=== PATIENT | female | born 1990 | race Caucasian/White ===

== ENCOUNTER 2022-04-07 10:01 | Outpatient (CLI) | payer BC, SELFPAY ==
[2022-04-07 13:51] LABS: Albumin* 3.5 g/dL (3.3-5.0); Chloride* 104 mmol/L (96-114); Sodium* 132 mmol/L (135-149)
[2022-04-07 13:52] LABS: Potassium* 4.1 mmol/L (3.6-5.1)
[2022-04-07 13:54] LABS: Alanine Aminotransferase* 26 U/L (4-35); Alkaline Phosphatase* 77 U/L (40-150); Aspartate Amino Transferase* 42 U/L (12-35); Bilirubin Total* 0.5 mg/dL (0.1-1.5); Blood Urea Nitrogen* 6 mg/dL (5-24); Calcium* 8.5 mg/dL (8.4-10.6); Carbon Dioxide* 21 mmol/L (20-32); Creatinine* 0.5 mg/dL (0.5-1.5); Estimated Glomerular Filt Rate 129 ml/min; Glucose* 90 mg/dL (60-115); Total Protein* 6.5 g/dL (6.0-8.3)
== END 2022-04-07 10:02 | disposition home or self-care (01) ==
LOC: LKVREF 10:02
PROVIDERS: PCP Family Medicine; Visit Provider Physician Assistant
DX: R19.7 Diarrhea, unspecified (principal)
CPT/HCPCS: 80053

== ENCOUNTER 2022-04-08 13:42 | Outpatient (CLI) | payer BC, SELFPAY ==
[2022-04-19 21:38] LABS: Cryptosporidium by PCR Detected; Cyclospora cayetanensis by PCR Not Detected; Dientamoeba fragilis by PCR Not Detected; Entamoeba histolytica by PCR Not Detected; Giardia by PCR Not Detected
== END 2022-04-08 13:43 | disposition home or self-care (01) ==
PROVIDERS: PCP Family Medicine; Visit Provider Family Medicine
DX: Z34.82 Encounter for supervision of other normal pregnancy, second trimester (principal); R19.7 Diarrhea, unspecified
CPT/HCPCS: 76816; 87045; 87046; 87427; 87505

== ENCOUNTER 2022-05-03 14:23 | Outpatient (CLI) | payer BC, SELFPAY ==
[2022-05-05 09:59] LABS: Rapid Plasma Reagin (RPR) Non Reactive (Non Reactive)
== END 2022-05-03 14:24 | disposition home or self-care (01) ==
PROVIDERS: PCP Family Medicine; Visit Provider Obstetrics & Gynecology
DX: Z34.93 Encounter for supervision of normal pregnancy, unspecified, third trimester (principal); Z3A.29 29 weeks gestation of pregnancy
CPT/HCPCS: 86592

== ENCOUNTER 2022-06-21 09:07 | Outpatient (CLI) | payer BC, SELFPAY ==
--- NOTE | 2022-06-21 09:15 | CRLHL7_ITS ---
For Patients: As a result of the Century Cures Act, medical imaging exams and procedure reports are released immediately into your electronic medical record. You may view this report before your referring provider. If you have questions, please contact your health care provider. INDICATION: Third trimester scan, evaluate growth. Planning . COMPARISON: 04.08.22 TECHNIQUE: Real time mac scale imaging of the fetus was performed. FINDINGS: Sonographic imaging demonstrates a single living intrauterine gestation. Fetus demonstrates a cardiac rate ranging between 185 and 195 beats per minute. Fetus has a vertex position. The placenta lies posteriorly. Amniotic fluid volume appears normal and there is a single deepest vertical pocket: 2.9 cm. The estimated weight is 2781gm which lies at the 46th %. On the prior OB ultrasound exam dated 04.08.22 the estimated weight was at the 50th%. BPD 10th percentile. HC 31st percentile. AC 59th percentile. FL 48th percentile. The HC/AC ratio measures 1.01 range (0.93-1.09). IMPRESSION: Sonographic gestational age 35 weeks 5 days and sonographic due date 07/21/2022. Good correlation with dates. Normal interval growth. Estimated weight 46th percentile. Abdominal circumference 59th percentile. The heart rate was upper limits of normal between 185 and 195 beats per minute. Dictated by Elgin Barrera MD @ 06/21/2022 10:52:45 AM (Electronically Signed)
== END 2022-06-21 09:08 | disposition home or self-care (01) ==
LOC: US 09:09
PROVIDERS: PCP Family Medicine; Visit Provider Obstetrics & Gynecology
DX: O34.219 Maternal care for unspecified type scar from previous cesarean delivery (principal); Z3A.35 35 weeks gestation of pregnancy
CPT/HCPCS: 76816; 87081; 87653

== ENCOUNTER 2022-07-05 11:45 | Inpatient (IN) | payer BC, SELFPAY ==
[2022-07-05] VITALS (11 sets, daily range): BP systolic 106–134; BP diastolic 56–74; PULSE 78–106; RESP 16; TEMP 36.9–37.1; O2SAT 99; BMI 29.1
[2022-07-05 12:52] LABS: SARS PCR* Negative SARS-CoV-2 (Negative)
[2022-07-05 13:14] LABS: Basophils Absolute Auto 0.02 K/uL (0.00-0.30); Basophils Percent Auto 0.2 % (0.0-3.0); Eosinophils Absolute Auto 0.05 K/uL (0.00-0.50); Eosinophils Percent Auto 0.5 % (0.0-7.0); Hematocrit 33.3 % (33.0-51.0); Hemoglobin* 11.3 gm/dL (12.0-16.0); Immature Granulocytes Abs Auto 0.02 K/uL (0.00-0.30); Immature Granulocytes Pct Auto 0.2 %; Lymphocytes Absolute Auto 1.95 K/uL (0.90-2.90); Mean Corpuscular HGB Conc 34 gm/dL (32-36); Mean Corpuscular Hemoglobin 30 pg (26-34); Mean Corpuscular Volume 89 fL (80-100); Monocytes Percent Auto 5.3 % (0.0-11.0); Neutrophils Percent Auto 72.8 % (42.0-72.0); Platelet Count* 141 K/uL (140-440); RDW Coefficient of Variation % 12.1 % (11.5-15.5); Red Blood Count 3.73 m/uL (4.00-5.20)
[2022-07-05 13:18] LABS: Slide Review Reflex No
--- NOTE | 2022-07-05 15:23 | W.PM.LDBA ---
Subjective History of Present Illness Time Seen by Provider: 14:00 Date Seen: 07/05/22 Narrative: Dimas being admitted to Labor and Delivery for IOL r/t cholystasis. She is a 32 year old at 38 0/7 weeks gestation. Her full history and physical was dictated by [] on []. Please see this for details. [] OB - H&P: Exam Physical Exam: Vital signs: Temp Pulse Resp BP Pulse Ox 98.4 F 106 H 16 118/74 99 07/05/22 12:04 07/05/22 12:04 07/05/22 12:04 07/05/22 12:04 07/05/22 12:02 Constitutional: Constitutional: no acute distress Routine HEENT Exam: Head: Present normocephalic Eye: Present normal appearance Routine Neck Exam: Neck: Present full ROM Routine Respiratory Exam: Respiratory: Present CTA bilaterally Routine Cardiovascular Exam: Cardiovascular: RRR Routine Exam: External: Present normal external exam Perineum Description: Normal Detailed Labor and Delivery Exam: Patient Gravid: yes Dilation (cm): 1 (Fingertip) Effacement (%): 20 Cervix position: posterior Consistency: soft Tachysystole: No Routine Back/Spine/Pelvis Exam: Back/Spine: full ROM Routine Neurological Exam: Present alert and oriented X3 Routine Psychiatric Exam: Present normal affect and normal thought process
--- NOTE | 2022-07-05 15:29 | P.OBHP_ITS ---
OB - H&P: HPI Labor/Induction History of Present Illness Time Seen by Provider: 14:30 Date Seen: 07/05/22 Chief Complaint: The patient is a 32 year old 5 para 2 at 38 0/7 weeks gestation by LMP, who presents for an IOL r/t cholestasis, pt is a TOLAC. OB Problem List 1. H/o d/t breech and successful Desires TOLAC. Predicted chance of success via calculator: 94.1% Consent given to the patient and reviewed on 05/03/22. Consent signed: signed 36 week growth ultrasound: EFW: 46%, Vertex, SDP: 2.9cm, BPD: 10%, HC: 31%, AC: 59%, FL:48%. 2. Anemia affecting in the 3rd trimester. * 05/03/2022: Hemoglobin 10.5 * Start nigu-tgn-gqxxmpe iron supplement 1 tablet p.o. daily with food * Recheck hemoglobin at 36 weeks: 11.5 3. GBS+, will need ampicillin in labor Chief complaint: Maternity and Cholestasis : 5 Para: 2 Date of last menstrual period: 10/12/21 Estimated date of delivery: 07/19/22 Gestational age based on last menstrual period: 38 Indications for induction: other (Cholestasis) Narrative: History of Present Dating criteria: based on LMP care: good care Ultrasounds: normal 1st trimester US and normal mid trimester US complications: other (Cholestasis) Labs Blood type: O (+) positive Rubella: immune RPR/VDLR: nonreactive GBS status: positive HBsAG: negative Review of Systems Status of ROS: Reports: 10 or more systems reviewed and unremarkable except as noted in History and below Meds Home Medications and Allergies Home Medications Medication Instructions Recorded Confirmed Type prenat.vits,tayla,xcz-iefe-jxfki 1 tab PO QDAY 03/06/22 07/05/22 History L.acidoph, paracasei,B. lactis 10 1 cell PO DAILY 05/03/22 07/05/22 History billion cell capsule (Digestive Advantage Advanced Probiotic) Allergies Allergy/AdvReac Type Severity Reaction Status Date / Time No Known Allergies Allergy Unverified 07/05/22 08:28 OB - H&P: Exam Physical Exam: Vital signs: Temp Pulse Resp BP Pulse Ox 98.4 F 106 H 16 118/74 99 07/05/22 12:04 07/05/22 12:04 07/05/22 12:04 07/05/22 12:04 07/05/22 12:02 Constitutional: Constitutional: no acute distress Routine HEENT Exam: Head: Present normocephalic Eye: Present normal appearance Routine Neck Exam: Neck: Present full ROM Routine Respiratory Exam: Respiratory: Present CTA bilaterally Routine Cardiovascular Exam: Cardiovascular: RRR Routine Exam: External: Present normal external exam Perineum Description: Normal Detailed Labor and Delivery Exam: Patient Gravid: yes Dilation (cm): 1 (fingertip) Effacement (%): 10 Cervix position: posterior Consistency: soft Tachysystole: No Contraction intensity: Mild (irregular) Fetus (Single): Station: -4 Heart Rate Baseline: 130 Monitor Accelerations: Present Monitor Decelerations: None Senior Living Variability: Moderate (6-25) Routine Extremities Exam: Extremities: Present full ROM; Absent pedal edema Routine Back/Spine/Pelvis Exam: Back/Spine: full ROM Routine Skin Exam: Present intact, dry and warm Routine Neurological Exam: Present alert and oriented X3 Detailed Neurological Exam: Coma Scale: Eye Opening: Spontaneous (4) Verbal Response: Orientated (5) Routine Psychiatric Exam: Present normal affect, normal thought process, cooperative, good insight and good judgment OB - Results Labs Labs: Short CBC 07/05/22 Range/Units 12:55 WBC 9.30 (4.50-11.00) K/uL Hgb 11.3 L (12.0-16.0) gm/dL Hct 33.3 (33.0-51.0) % Plt Count 141 (140-440) K/uL OB - Problem Based A/P Additional Plan (1) Encounter for supervision of other normal , third trimester: Status: Acute (2) Cholestasis during in third trimester: Status: Acute (3) Anemia affecting in third trimester: Status: Acute (4) Patient desires vaginal after section (): Status: Acute Plan ASSESSMENT:? 32yo at 38 0/7 weeks gestation? complicated by:?Cholestasis Labor type: Induced labor? Category 1 FHR pattern.?? Labor complicated by: GBS+? PLAN:? 1. Routine intrapartum cares as ordered. 2. Monitoring per policy, continuous d/t TOLAC and Cholestasis? 3. Planning unmedicated . Candidate for analgesia of choice if desired.?? 4. Patient encouraged to reposition and ambulate to promote physiologic labor and .? 6. Anticipate progress to active labor and 7. Dr. Noonan aware of pt's arrival ? Delivery/Labor/Induction Plan Plan: induction Induction method: Intracervical balloon catheter (Per Pitocin Protocol)
[2022-07-05] MEDS: LACTATED RINGERS 1000 ML 1,000 ML 124 ML IV (17:54)
[2022-07-05] MEDS: OXYTOCIN 30 unit/500 ML in NS 30 UNIT/500 ML BAG IVPB (17:56)
[2022-07-05] MEDS: AMPICILLIN 2 GM in 0.9 % SODIUM CHLORIDE Mini-bag 100 ML IVPB (19:55)
--- NOTE | 2022-07-05 21:51 | P.OBPN_ITS ---
Subjective Time Seen by Provider: 21:51 Date Seen: 07/05/22 Narrative: Intrapartum Progress Note? Labor and Delivery? ? Subjective: Denice is coping well with labor pain/contractions. She is currently being supported by her Jeffrey. Cook catheter fell out on it's own, pt reports she is feeling contractions more and needs to breath through them more now. SVE 3cm/30%/-4 - cervix is very soft and stretchy. Discussed continuing pitocin and balancing ambulation and position changes with rest tonight. Questions answered to her satisfaction. Denies concerns. She would like to continue with position changes and breathing for comfort and pain management.?? Objective Vital Signs: Last Vital Signs Temp 98.6 F 07/05/22 19:58 Pulse 84 07/05/22 19:59 Resp 16 07/05/22 19:58 BP 115/70 07/05/22 19:59 Pulse Ox 99 07/05/22 12:02 Pelvic Exam Dilation (cm): 3 Effacement (%): 30 Station: -4 Contractions Monitor mode: External Contraction pattern: Irregular Contraction intensity: Mild (irregular) Pitocin Rate (mU/min): 4 Assessment Station: -4 Heart Rate Baseline: 130 Professor Of Spanish Variability: Moderate (6-25) Monitor Accelerations: Present Monitor Decelerations: None Plan Plan: ASSESSMENT:? 32yo at 38 0/7 weeks gestation? complicated by:?Cholestasis Labor type: Induced labor? Category 1 FHR pattern.?? Labor complicated by: GBS+? PLAN:? 1. Routine intrapartum cares as ordered. 2. Pitocin per protocol 3. Monitoring per policy, continuous d/t TOLAC and Cholestasis? 4. Planning unmedicated . Candidate for analgesia of choice if desired.?? 5. Patient encouraged to reposition and ambulate to promote physiologic labor and .? 6. Anticipate progress to active labor and 7. Dr. Noonan aware of pt's arrival
[2022-07-06] VITALS (18 sets, daily range): BP systolic 89–123; BP diastolic 51–69; PULSE 74–100; RESP 14–16; TEMP 36.9–37.1; O2SAT 97
--- NOTE | 2022-07-06 01:35 | PM.OBPNL ---
Subjective Time Seen by Provider: 01:35 Date Seen: 07/06/22 Narrative: Intrapartum Progress Note? Labor and Delivery? ? Denice is coping well with labor pain/contractions. She is currently being supported by her .. Understands the current plan of care. Questions answered to her satisfaction. Reports concerns regarding: wanting to sleep if it will not slow down labor, but feels she needs some medication to help her fall asleep. Discussed options for unisom or Vistaril since she is not experiencing much pain right now and is not feeling ready for pain medication yet. She would like to continue with breathing and relaxation for comfort and pain management. ?? Objective Vital Signs: Last Vital Signs Temp 98.7 F 07/05/22 23:48 Pulse 81 07/05/22 23:48 Resp 16 07/05/22 23:48 BP 134/69 07/05/22 23:48 Pulse Ox 99 07/05/22 12:02 Pelvic Exam Dilation (cm): 4 Effacement (%): 50 Station: -3 Contractions Monitor mode: External Contraction pattern: Irregular Contraction intensity: Mild (irregular) Pitocin Rate (mU/min): 4 Assessment Station: -4 Status: Category l Heart Rate Baseline: 130 Laboratory Phlebotomist Variability: Moderate (6-25) Monitor Accelerations: Present Monitor Decelerations: None Plan Plan: ASSESSMENT:? 32yo at 38 2/7 weeks gestation? complicated by:?Cholestasis Labor type: Induced labor? Category 1 FHR pattern.?? Labor complicated by: GBS+? PLAN:? 1. Routine intrapartum cares as ordered. 2. Pitocin per protocol 3. Monitoring per policy, continuous d/t TOLAC and Cholestasis? 4. Planning unmedicated . Candidate for analgesia of choice if desired.?? 5. Patient encouraged to reposition and ambulate to promote physiologic labor and .? 6. Anticipate progress to active labor and 7. Dr. Noonan aware of pt's arrival
[2022-07-06] MEDS: LACTATED RINGERS 1000 ML 1,000 ML 109 ML IV (02:05)
[2022-07-06] MEDS: AMPICILLIN 1 GM in 0.9 % SODIUM CHLORIDE Mini-bag 100 ML IVPB ×2 (02:55→07:10)
[2022-07-06] MEDS: LIDOCAINE 1% MDV 20 ML INJECTION (09:00)
--- NOTE | 2022-07-06 09:21 | PM.OBPRCVD ---
Procedure Procedure Done: Global Procedure Details: The patient is a 32 year-old G 5 P 2-0-2-2 woman admitted on 07/05/2022 at 38 Weeks, 0 Days gestation for induction of labor for indication of suspected cholestasis of .? Diagnosis was based on symptoms of pruritus of palms and soles. Cervical exam on admission was [] cm/[] % effaced/[] station with membranes intact in vertex presentation.? heart rate demonstrated baseline [] bpm with [moderate] variability, [+] accelerations, [-] decelerations; a category [1] tracing.? She had Cook catheter placed for cervical ripening. She had ampicillin for GBS prophylaxis. She had Pitocin for augmentation. AROM occurred at 8:00 a.m. with clear fluid. ? Labor Analgesia:? None ? Pitocin:? Yes ? Labor onset:? Morning of 07/06/2022 ? Complete:? 8:35 a.m. ? Pushing:? 8:40 a.m. ? heart tones during second stage were notable for deep decelerations following 2 contractions. ? At 8:51 a.m. a viable male delivered in vertex PUMA presentation over small first-degree perineal laceration via spontaneous vaginal delivery.? Infant was placed on maternal abdomen.? Cord was clamped and cut after a 60 second delay.? Nose and mouth were bulb suctioned.? Infant weight pending.? 8 at 1 minute and 9 at 5 minutes.? Shoulder dystocia: No.? Nuchal cord: No. ? Placenta delivered spontaneously and complete at 8:59 a.m. with a 3 vessel cord. ? Mother and were stable after delivery. ? Lacerations:? Periurethral and first-degree perineal, each repaired with interrupted sutures of 3-0 Vicryl after infiltration with a total of 10 mL of 1% lidocaine. ? Blood loss: 300 mL. Blood loss measurement type: EBL ? Sponge and needles counts are correct.
[2022-07-06] MEDS: LACTATED RINGERS 1000 ML 1,000 ML 999 ML IV (09:40)
[2022-07-07 01:00] VITALS: BP 102/67; PULSE 78; RESP 14; TEMP 36.8; O2SAT 96
[2022-07-07 05:24] VITALS: BP 97/63; PULSE 79; RESP 14; TEMP 36.7; O2SAT 97
[2022-07-07 07:20] LABS: Hemoglobin* 9.5 gm/dL (12.0-16.0)
[2022-07-07 09:38] VITALS: BP 101/55; PULSE 84; RESP 20; TEMP 36.6; O2SAT 97
--- NOTE | 2022-07-07 10:27 | P.DS_ITS ---
DS: Providers Provider Date Seen: 07/07/22 Date of admission: 07/05/22 11:45 Primary care physician: Ash Kitchen MD Admitting Clinician: Jodi Laughlin CNM Attending Physician on discharge: Seema Brink MD Date of Discharge: 07/07/22 DS: Diagnosis Discharge Diagnosis (1) Anemia associated with acute blood loss: Status: Acute (2) Vaginal after : Status: Acute (3) Cholestasis during in third trimester: Status: Resolved Exam Narrative: Exam Narrative: General: No acute distress Psych: Alert and oriented x 3, full affect HEENT: Normocephalic, atraumatic Heart: Regular rate and rhythm, no murmur or gallop Lungs: Clear to auscultation bilaterally Abdomen: Soft, nontender, fundus well below umbilicus Lower extremities: No edema or erythema Const: Vital Signs, click to edit/add: Vital Signs - 24 hr 07/06/22 10:34 07/06/22 10:49 07/06/22 11:04 Temperature Pulse Rate 75 89 83 Pulse Rate [Pulse Oximeter] Respiratory Rate Blood Pressure 89/54 L 93/58 L 92/63 Blood Pressure [Le ft Arm] Pulse Oximetry Oxygen Delivery Me thod 07/06/22 11:19 07/06/22 11:21 07/06/22 16:55 Temperature 98.8 F Pulse Rate 90 81 Pulse Rate [Pulse Oximeter] Respiratory Rate 16 Blood Pressure 92/64 98/63 89/53 L Blood Pressure [Le ft Arm] Pulse Oximetry Oxygen Delivery Me thod 07/06/22 17:50 07/06/22 20:35 07/07/22 01:00 Temperature 98.4 F 98.2 F Pulse Rate Pulse Rate [Pulse Oximeter] 100 78 Respiratory Rate 16 16 14 Blood Pressure Blood Pressure [Le ft Arm] 103/67 99/65 102/67 Pulse Oximetry 97 96 Oxygen Delivery Me thod Room Air Room Air 07/07/22 05:24 07/07/22 09:38 Temperature 98.0 F 97.9 F Pulse Rate Pulse Rate [Pulse Oximeter] 79 84 Respiratory Rate 14 20 Blood Pressure Blood Pressure [Le ft Arm] 97/63 101/55 L Pulse Oximetry 97 97 Oxygen Delivery Me thod Room Air Room Air OB - DS: Summary Hospital Course Hospital Course: Denice is a 32 year old 5 now para 3 who is s/p normal spontaneous vaginal delivery / successful on 07/06/2022 at 38 0/7 weeks gestation in the setting of suspected cholestasis of . She had generalized pruritus including her palms and soles. She had normal transaminases, and bile acids are still pending. She had an uncomplicated normal spontaneous vaginal delivery / successful on 07/06/2022. She delivered a healthy male . She had first-degree perineal laceration and periurethral laceration. She is successfully . Her course has been smooth. Today, on day 1, she has no complaints. She is feeling well. She is tolerating regular diet. She is ambulating and urinating without difficulty. She denies any heavy bleeding. She has no complaints of pain. Peripartum Data delivery method: Episiotomy description: None Gender: Male Time Spent with Patient Time attestation: Total time spent providing and/or coordinating discharge services: Discharge Plan Discharge Disposition: Home, Self-Care Date of Admission: 07/05/22 11:45 Attending Provider on Discharge: Seema Brink Primary Care Provider: Ash Kitchen Condition: Improved Anticipated Discharge Date/Time: 07/07/22 10:32 Discharge Medications: New acetaminophen 500 mg Tablet 1,000 mg PO Q6H PRN (Reason: pain/fever) Qty: 0 0RF docusate sodium 100 mg Capsule 100 mg PO DAILY Qty: 30 0RF ibuprofen 600 mg Tablet 600 mg PO Q6H PRNQty: 60 0RF Continued prenat.vits,tayla,[id number] Tablet 1 tab PO QDAY Digestive Advantage Advanced 10 billion cell capsule 1 cell PO DAILY Discharge Orders: Discharge Order (Routine); Ordered 07/07/22 Ordered By: Seema Brink Patient Education: OB Vaginal/Breast Feeding Additional Instructions: Discharge instructions were reviewed with the patient including signs and symptoms of infection and home going medications Nothing vaginally for 6 weeks: no tampons or intercourse Do not drive while taking narcotic pain medication(s) Off Work or School for 8 weeks Symptoms to report to doctor: * Bleeding that saturates more than one pad per hour * Passing clots larger than the size of a golf ball * Pain not relieved by prescribed medication * Fever above 100.4 degrees Fahrenheit * A foul vaginal odor * Difficulty in emotions, mood, and functions * Thoughts of hurting yourself and/or * Painful, reddened area in your breast * Any drainage, redness, or tenderness in your IV/epidural site * Severe headache that doesn't improve after taking medications * Changes in vision, including temporary loss of vision, blurred vision, and/or light sensitivity * Upper abdominal pain (usually under ribs on the right side) * Decrease in urination or painful, frequent urinating * Chest pain * Shortness of breath * Tenderness or pain with redness and/swelling in the calf(s) of your leg Optional 2-week visit: discuss feeding concerns, review control options and screen for anxiety/depression. 6-week visit consultation services are available to all mothers and babies for the first year after delivery.? To make an appointment, please call [phone]. Activity Level: Activity as Tolerated Discharge Diet: Regular Follow Up Appointments: Ash Kitchen MD [Primary Care Provider] - Seema Brink MD [Staff Physician] - Forms: [employer] Info Instructions
== END 2022-07-07 12:01 | disposition home or self-care (01) | DRG 560 ==
PROVIDERS: Obstetrics & Gynecology; Admitting Provider Advanced Practice Midwife; PCP Family Medicine; Visit Provider Advanced Practice Midwife
DX: O34.211 Maternal care for low transverse scar from previous cesarean delivery (principal); O26.62 Liver and biliary tract disorders in childbirth; K83.1 Obstruction of bile duct; O70.0 First degree perineal laceration during delivery; O71.82 Other specified trauma to perineum and vulva; O99.824 Streptococcus B carrier state complicating childbirth; O99.02 Anemia complicating childbirth; D62 Acute posthemorrhagic anemia; Z3A.38 38 weeks gestation of pregnancy; Z37.0 Single live birth
CPT/HCPCS: 36415; 82239; 84450; 84460; 85018; 85025; 86850; 86900; 86901; 87635; 88307; J0290; J7120

== ENCOUNTER 2022-07-19 09:34 | Outpatient (CLI) | payer BC, SELFPAY ==
--- NOTE | 2022-07-24 12:18 | W.PM.LAC.MC ---
Consult Note - Mom Date of Visit Date of visit: 07/19/22 creative consultant: Radha Saini Visit Code: Visit Patient's Information Phone number: [phone] : 5 Para: 3 Allergies No Known Allergies Allergy (Verified 07/06/22 10:05) Mother's Medical History: Medical History (Updated 07/07/22 @ 11:38 by Seema Brink MD) Cholestasis during in third trimester History of recurrent miscarriages Delivery Information Delivery type: (with IOL) Weeks Gestation: 38.0 Gestational Age: AGA Weight: 3.18 kg Discharge Weight: 3.044 kg Baby's Information Baby's Age at Visit: 13 days Baby's Provider or Clinic: Dr. Parker Jaundice: Yes (mild, to abdomen) Reason for Consult Reason for Consult: difficulty with latching, using a nipple shield and pumping d/t nipple damage Past Experience Past Experience: Yes (nursed her two older children for about 1.5 years each) Current Frequency of Day Feedings: every 2 - 2.5 hours around the clock Both Breasts: Yes Suck: strong Latch: wide Length of Time: 10 - 15 min/side Goals: wants to get back to exclusive Pumping Pumping: Yes (occasionally) Quantity Pumped: 1.5 - 2 oz total/side Supplementing EMB Supplement: Yes (baby is given about 4 oz EBM or formula daily, none in the last 24 hours) Formula Supplement: Yes Baby Elimination Number of Wet Diapers a Day: 6 - 8 Number of BM a Day: none for the past few days (gave formula on 07/17) Breast/Nipple Condition Breast Information: WNL Maternal Nipple Condition - Left: Common Nipple Maternal Nipple Condition - Right: Common Nipple Sore Nipples: Yes Onsite Pre-Feed weight: 3.19 kg Post-Feed weight: 3.264 kg Milk Transferred (mL): 74 Pre-Nursing Left Nipple: Within Normal Limits Pre-Nursing Right Nipple: Within Normal Limits Post-Nursing Left Nipple: Within Normal Limits Post-Nursing Right Nipple: Within Normal Limits Assessments/Interventions Assessments/Interventions: Met with mom and this now 2 week old ex- term AGA baby for consult.? Mom reports a lot of difficulty with latching baby and that has caused nipple damage which makes it very painful to nurse; she's also concerned about a lip tie.? Reports baby has also been slow to gain weight so has been supplemented with EBM or formula (about 4 oz/24 hours).? She attempts to nurse with every feeding and has used the nipple shield recently to help with the pain.? States yesterday she nursed without it and didn't offer any supplementation to see how he would do today. Breasts WNL- symmetrical with rounded lower quadrants, intramammary distance is < 1.5 inches.? Nipples are everted and don't flatten or retract with compression.? Both nipples have signs of damage to the center of the nipples but they are healing, which mom confirmed. Baby has gained 43 grams/day since his last visit on 07/15 and he's now at BW at 13 DOL.? Mom denies any caput/cephalohematoma at delivery, but states he came fast.? She reports equal ROM when turning his head and moving his extremities, but does report nursing is easier on the left side.? Baby's palate is WNL.? The upper frenulum appears tight but the lower frenulum is WNL.? He has a strong suck on a finger and the tongue easily extends past the gum line and has good lateral movement.? Mom latched baby in the cross cradle position on the left side and baby had a wide latch, taking in almost all of the areola.? Mom reported a pain level that made her wince, but it subsided within the first 10 - 15 seconds.? Baby's upper lip appears neutral, but when it was flipped out a little she reported increased comfort.? Baby nursed for 10 - 15 minutes and she was comfortable for the remainder of that nursing session.? Nipple was a little misshapen when baby came off.? When offering the right side mom was verbally coached to exaggerate pointing her nipple to baby's nose and bring him into her quickly when he opened wide.? Mom reports the initial latch wasn't as painful; again had even more improvement when his upper lip was flanged out.? Baby nursed for another 10 - 15 minutes and mom was comfortable.? He transferred 74 ml. Plan: 1. Suggested she practice nursing with every feeding, use the ideas noted above to get as deep a latch as possible.? Can fold out the upper lip if it helps but reviewed upper lip ties and their impact on comfort are controversial.? Suggested she offer both sides at each feeding and if, as the feeding progresses, she feels his latch becomes more shallow to take him off and try again or switch sides. 2. Based on his weight gain over the past few days and how much he transferred at this nursing session, baby doesn't need regular supplementation and she could start to offer it prn.? 3. Suggested she pump to comfort after nursing if needed; again no medical need to regularly pump. 4. Suggested a body work appointment for her and baby; she has a chiropractor but hasn't made an appointment yet. 4. F/U next week for a weight check and circumcision and I will f/u by phone to see how things are going.? If she is still having pain/nipples haven't healed, could consider a pediatric dental referral. 5. Encouraged Baby Talk and a flange fit guide given. Meds Home Medications and Allergies Home Medications Medication Instructions Recorded Confirmed Type prenat.vits,tayla,llu-qhgl-nzovn 1 tab PO QDAY 03/06/22 07/05/22 History L.acidoph, paracasei,B. lactis 10 1 cell PO DAILY 05/03/22 07/05/22 History billion cell capsule (Digestive Advantage Advanced Probiotic) Allergies Allergy/AdvReac Type Severity Reaction Status Date / Time No Known Allergies Allergy Verified 07/06/22 10:05
== END 2022-07-19 09:35 | disposition home or self-care (01) ==
PROVIDERS: PCP Family Medicine; Visit Provider Obstetrics & Gynecology
DX: Z39.1 Encounter for care and examination of lactating mother (principal)
CPT/HCPCS: 99211

== ENCOUNTER 2022-12-04 08:00 | Outpatient (RCR) | payer BC, SELFPAY | END 2023-03-06 23:59 | disposition home or self-care (01) | PROVIDERS: PCP Family Medicine; Visit Provider Registered Nurse | DX: N81.89 Other female genital prolapse (principal); Z51.89 Encounter for other specified aftercare | CPT/HCPCS: 97110; 97140; 97162; 97535 ==

== ENCOUNTER 2024-12-01 14:21 | Outpatient (CLI) | payer BC, SELFPAY ==
[2024-12-01 16:26] LABS: Bacterial Vaginosis* Negative (Negative); Candida glab/krus NOT DETECTED (No Detected); Candida species NOT DETECTED (No Detected); Trichomonas vaginalis NOT DETECTED (No Detected)
[2024-12-04 00:56] LABS: HPV Source Cervix; HPV, High Risk by TMA Not Detected
== END 2024-12-01 14:22 | disposition home or self-care (01) ==
PROVIDERS: PCP Family Medicine; Visit Provider Registered Nurse
DX: L29.2 Pruritus vulvae (principal); Z12.4 Encounter for screening for malignant neoplasm of cervix; Z11.51 Encounter for screening for human papillomavirus (HPV)
CPT/HCPCS: 81513; 87481; 87624; 87625; 87661; 88141; 88142

== ENCOUNTER 2025-07-15 08:28 | Emergency (ER) | payer BC, SELFPAY ==
[2025-07-15 08:36] VITALS: BP 116/80; PULSE 118; TEMP 36.1; O2SAT 97; BMI 26.1
--- NOTE | 2025-07-15 09:12 | ED.GENADULT ---
HPI - General Adult General Chief complaint: Sore Throat Stated complaint: flu like symptoms Time Seen by Provider: 07/15/25 08:32 History of Present Illness HPI narrative: This 35-year-old female comes in with her reporting sore throat and generalized malaise for the past 5 days. She did go to urgent care and had a negative strep test. She does not report any cough. She also does not report any fevers but states that her sore throat is becoming worse. Related Data Home Medications ?Medication ?Instructions ?Recorded ?Confirmed multivitamin (Daily Multi-Vitamin 1 tab PO QAM 11/03/23 12/01/24 tablet) Previous Rx's ?Medication ?Instructions ?Recorded amoxicillin 875 mg-potassium 1 tab PO BID #14 tabs 07/15/25 clavulanate 125 mg tablet methylprednisolone 4 mg tablets in See Rx Instructions PO .COMPLEX 07/15/25 a dose pack (Medrol ([place]annan)) #21 ea Allergies Allergy/AdvReac Type Severity Reaction Status Date / Time No Known Allergies Allergy Verified 12/01/24 10:33 Review of Systems Status of ROS: Reports: 10 or more systems reviewed and unremarkable except as noted in History and below Narrative: Constitutional: No fevers, no weight gain or loss. Eyes: No discharge. No vision changes. HENT: No congestion. Sore throat with pain radiating to her ears. Cardiovascular: No chest pain, no palpitations. Respiratory: No shortness of breath, no wheezes, no cough. Gastrointestinal: No abdominal pain, no vomiting, no diarrhea. Genitourinary: No dysuria, no hematuria. Musculoskeletal: Normal range of motion. Skin: No rashes, no pruritis. Neurological: No dizziness, weakness, sensory change, speech change. Endo/Heme/Allergies: No bruising or bleeding. No polydipsia. Pysch: no suicidality, no anxiety, no insomnia. All other systems reviewed and are negative. 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 exercises 3 times per week. Smoking Status: Never smoker Do you use any of these nicotine containing products: None Second hand tobacco smoke exposure: No How often do you have a drink containing alcohol: monthly or less AUDIT-C Alcohol total score: 1 Non-prescribed substance use: denies use Exam Narrative: Exam Narrative: Constitutional: Well-developed, well-nourished, no acute distress. HEENT: Normocephalic, atraumatic. Oropharynx shows pharyngeal erythema and tonsillar swelling with purulence. There is no unilateral swelling suggestive of an abscess at this time. No muffled voice or trismus. Neck: Normal range of motion. Nontender. Supple. Heart: Intact distal pulses. Lungs: No chest discomfort. No wheezes, rhonchi, or rales. Abdomen: Nontender. Back: Normal range of motion. Extremities: Normal range of motion. No injury. Skin: Intact. No rash. Warm. No erythema or pallor. Neurologic: No altered sensation. No weakness. Alert and oriented. Psychiatric: No suicidality. No anxiety or depression. No insomnia. Nursing notes and vitals signs are reviewed. Const: Vital Signs, click to edit/add: Vital Signs - 24 hr 07/15/25 08:36 07/15/25 09:44 Temperature 97 F L Pulse Rate [Right Radial] 118 H 102 H Respiratory Rate 18 Blood Pressure [Ri ght Upper Arm] 116/80 Pulse Oximetry 97 98 Oxygen Delivery Me thod Room Air Course Vital Signs Vital signs: Initial Vital Signs Temperature 97 F L 07/15/25 08:36 Temperature Source Temporal Artery Scan 07/15/25 08:36 Pulse Rate 118 H 07/15/25 08:36 Pulse Rhythm Regular 07/15/25 08:36 Blood Pressure 116/80 07/15/25 08:36 Blood Pressure Mean 92 07/15/25 08:36 Pulse Oximetry 97 07/15/25 08:36 Oxygen Delivery Method Room Air 07/15/25 08:36 Vital Signs Temperature 97 F L 07/15/25 08:36 Pulse Rate 118 H 07/15/25 08:36 Blood Pressure 116/80 07/15/25 08:36 Pulse Oximetry 97 07/15/25 08:36 Oxygen Delivery Method Room Air 07/15/25 08:36 Temperature 97 F L 07/15/25 08:36 Pulse Rate 102 H 07/15/25 09:44 Respiratory Rate 18 07/15/25 09:44 Blood Pressure 116/80 07/15/25 08:36 Pulse Oximetry 98 07/15/25 09:44 Oxygen Delivery Method Room Air 07/15/25 08:36 Medications Administered Medications: Discontinued Medications Generic Name Dose Route Start Last Admin Trade Name Freq PRN Reason Stop Dose Admin Dexamethasone 10 mg 07/15/25 09:11 07/15/25 09:17 Dexamethasone 10 Mg/Ml Inj PO 07/15/25 09:12 10 mg ONCE ONE Administration Medical Decision Making MDM Narrative Medical decision making narrative: This patient comes in with sore throat and has purulence on enlarged tonsils bilaterally. A strep test and nasal swab is obtained and these returned with negative results. Patient received an oral dose of dexamethasone 10 mg. She is showing distinct signs of tonsillitis. I did provide a prescription for Augmentin. Lab Data Labs: Lab Results 07/15/25 Range/Units 08:50 SARS-CoV-2 (PCR) Negative SARS-CoV-2 (Negative) Influenza Type A (PCR) Negative PCR FLU A (Negative) Influenza Type B (PCR) Negative PCR FLU B (Negative) RSV (PCR) Negative PCR RSV (Negative) Group A Strep DNA NOT DETECTED (Not Detectd) Discharge Plan Discharge Clinical Impression: Acute tonsillitis Patient Disposition: Home, Self-Care Condition: Stable Additional Instructions: Take medication as prescribed. Use [id number] medicines also as needed and directed. Follow up with MD return if worsening. Prescriptions: New amoxicillin-pot clavulanate 875-125 mg tablet 1 tab PO BID Qty: 14 0RF methylprednisolone [Medrol (Kannan)] 4 mg tablets,dose pack See Rx Instructions .ROUTE .COMPLEX Qty: 21 0RF Rx Instructions: orally per package directions No Action multivitamin [Daily Multi-Vitamin] Tablet 1 tab PO QAM Follow Up/Referrals: Ash Kitchen MD [Primary Care Provider, Family Practice] Stand Alone Forms: MyHealth Info Instructions
[2025-07-15 09:28] LABS: Strep A DNA Probe* NOT DETECTED (Not Detectd)
[2025-07-15 09:43] LABS: PCR FLU A Negative PCR FLU A (Negative); PCR FLU B Negative PCR FLU B (Negative); PCR RSV Negative PCR RSV (Negative); SARS PCR* Negative SARS-CoV-2 (Negative)
[2025-07-15 09:44] VITALS: PULSE 102; RESP 18; O2SAT 98
== END 2025-07-15 09:46 | disposition home or self-care (01) ==
LOC: ED 09:16
PROVIDERS: Emergency Provider Emergency Medicine Emergency Medical Services; PCP Family Medicine
DX: J03.90 Acute tonsillitis, unspecified (principal); R53.81 Other malaise
CPT/HCPCS: 87631; 87651; 99283; 99284; J1100